=== PATIENT | male | born 1970 | race Caucasian/White ===

== ENCOUNTER → 2019-12-25 | Outpatient (CLI) | payer OTHER | LOC: SJCVCIMAG 10:29 | PROVIDERS: ATTEND Internal Medicine Cardiovascular Disease | DX: I65.21 Occlusion and stenosis of right carotid artery (principal); E78.00 Pure hypercholesterolemia, unspecified; Z82.3 Family history of stroke ==

== ENCOUNTER → 2020-02-07 | Outpatient (CLI) | payer OTHER | LOC: CAT 07:54 | PROVIDERS: ATTEND Physician Assistant | DX: Z13.6 Encounter for screening for cardiovascular disorders (principal); I25.10 Atherosclerotic heart disease of native coronary artery without angina pectoris; E78.00 Pure hypercholesterolemia, unspecified ==